=== PATIENT | female | born 1955 | race Caucasian/White ===

== ENCOUNTER → 2020-01-07 | Outpatient (CLI) | payer OTHER ==
--- NOTE | 2020-01-07 10:46 | Diagnostic Imaging Report ---
PROCEDURE: US carotid duplex, bilateral. TECHNIQUE: Multiple real-time grayscale images were obtained over the carotid arteries in various projections, bilaterally. Additional spectral analysis and color Doppler duplex images were also obtained. INDICATION: Occlusion stenosis of carotid arteries. FINDINGS: The previous carotid Doppler exam of 03/21/2019 noted a chronic occlusion of the left internal carotid artery. There is no sign of hemodynamically significant stenosis of the right carotid system, however. On this exam, our sonologist suggested that there may be minimal blood flow within the internal carotid artery. However, I am not convinced that there is in fact any blood flow within the internal carotid artery. Furthermore, the CTA head and neck exam performed on 12/09/2017 indicated that the internal carotid artery was completely occluded. There is still no evidence for hemodynamically significant stenosis of the right carotid system. Both vertebral arteries were identified and there was antegrade flow bilaterally. IMPRESSION: 1. There is no clear evidence for any blood flow within the occluded internal carotid artery on the left. If further study is desired, then repeat CTA head and neck exam will be recommended. 2. There is still no evidence for hemodynamically significant stenosis of the right carotid system. Parameters based on the consensus panel Stacy-Scale and Doppler ultrasound criteria published June 2003, Radiology, Volume 229. DOPPLER (peak systolic velocity M/S Right Left CCA 1.17 .75 ICA Proximal 0.88 0.26 ICA Mid 1.03 .14 ICA Distal 1.01 .14 RATIO 0.88 0.34 ECA 1.18 3.06 VERT .52 .54 Dictated by: Dictated on workstation # [id number]
== END ==
LOC: RAD 08:25
DX: I65.23 Occlusion and stenosis of bilateral carotid arteries (principal)
CPT/HCPCS: 93880

== ENCOUNTER → 2020-06-02 | Outpatient (CLI) | payer OTHER ==
--- NOTE | 2020-06-03 10:06 | Diagnostic Imaging Report ---
INDICATION: Routine screening. Comparison is made with prior mammogram 05/29/2019 and 05/08/2018. 2-D and 3-D bilateral screening mammography was performed with CAD. Both breasts are heterogeneously dense, limiting the sensitivity of mammography. There are benign calcifications in both breasts. No mass or malignant appearing microcalcifications are seen. Axillae are unremarkable. IMPRESSION: BI-RADS Category 2 No mammographic features suspicious for malignancy are identified. ACR BI-RADS Category 2: Benign findings. Result letter will be mailed to the patient. Note: At least 10% of breast cancer is not imaged by mammography. Dictated by: Dictated on workstation # [id number]
== END ==
LOC: RAD 08:05
PROVIDERS: ATTEND Internal Medicine
DX: Z12.31 Encounter for screening mammogram for malignant neoplasm of breast (principal)
CPT/HCPCS: 77063; 77067

== ENCOUNTER → 2020-08-18 | Outpatient (CLI) | payer OTHER | LOC: LABNPT 07:13 | PROVIDERS: ATTEND Orthopaedic Surgery | DX: Z01.812 Encounter for preprocedural laboratory examination (principal); Z20.822 Contact with and (suspected) exposure to COVID-19 | CPT/HCPCS: 87635 ==

== ENCOUNTER → 2021-06-03 | Outpatient (CLI) | payer OTHER ==
--- NOTE | 2021-06-04 10:30 | Diagnostic Imaging Report ---
EXAMINATION: Digital mammogram bilateral screening with CAD. INDICATION: Screening. COMPARISON: This study was compared to the prior exams of 06/02/2020, 05/29/2019, and 05/08/2018. At this time, there are no current complaints. FINDINGS: The fibroglandular tissue in both breasts is heterogeneously dense. This does limit the sensitivity of this exam. Overall, there does not appear to have been any significant change when compared to the prior study. No primary or secondary sign of malignancy is noted. IMPRESSION: There is no radiographic evidence for malignancy. ACR BI-RADS Category 1: Negative. Result letter will be mailed to the patient. Note: At least 10% of breast cancer is not imaged by mammography. Dictated by: Dictated on workstation # [id number]
== END ==
LOC: RAD 08:00
PROVIDERS: ATTEND Internal Medicine
DX: Z12.31 Encounter for screening mammogram for malignant neoplasm of breast (principal)
CPT/HCPCS: 77063; 77067

== ENCOUNTER → 2022-06-04 | Outpatient (CLI) | payer MEDICARE ==
--- NOTE | 2022-06-04 11:29 | Diagnostic Imaging Report ---
INDICATION: Routine screening. Comparison is made with prior mammogram from 06/03/2021 and 06/02/2020. 2-D and 3-D bilateral screening mammography was performed with CAD. CAD is utilized. The current study was also evaluated with a Computer Aided Detection (CAD) system. Both breasts are heterogeneously dense, limiting the sensitivity of mammography. There are benign calcifications bilaterally. No mass or malignant-appearing microcalcifications are seen. Axillae are unremarkable. IMPRESSION: BI-RADS Category 2 No mammographic features suspicious for malignancy are identified. ACR BI-RADS Category 2: Benign findings. Result letter will be mailed to the patient. Note: At least 10% of breast cancer is not imaged by mammography. Dictated by: Dictated on workstation # [id number]
== END ==
LOC: RAD 07:45
PROVIDERS: ATTEND Internal Medicine
DX: Z12.31 Encounter for screening mammogram for malignant neoplasm of breast (principal)
CPT/HCPCS: 77063; 77067

== ENCOUNTER → 2022-07-06 | Outpatient (CLI) | payer MEDICARE ==
--- NOTE | 2022-07-06 12:47 | Diagnostic Imaging Report ---
INDICATION: Postmenopausal state. COMPARISON: None available. FINDINGS: AP Spine L1-L4: [BMD (g/cm2): 1.072] [T-Score: -1.1] [Z-Score: 0.9] [BMD Previous: NA] [BMD % Change: NA] LT Hip Neck: [BMD (g/cm2): NA] [T-Score: NA] [Z-Score: NA] LT Hip Total: [BMD (g/cm2):NA] [T-Score:NA] [Z-Score: NA] [BMD Previous: NA] [BMD % Change: NA] RT Hip Neck: [BMD (g/cm2):NA] [T-Score:NA] [Z-Score:NA] RT Hip Total: [BMD (g/cm2):NA] [T-score:NA] [Z-Score:NA] [BMD Previous:NA] [BMD % Change:NA] Left forearm: Radius 33%: T-score: -2.8, Z-score: -1.4, bone mineral density: 0.640 *Indicates significant change from prior examination based on 95% confidence level. World Health Organization criteria for BMD interpretation classify patients as Normal (T-score at or above -1.0), Osteopenic (T-score between -1.0 and -2.5) or Osteoporotic (T-score at or below -2.5). LIMITATIONS AND MODIFICATION: The bilateral hips were not evaluated secondary to postsurgical changes. IMPRESSION: 1. Osteoporosis. 2. Baseline examination. 3. See below National Osteoporosis Foundation guidelines on when to potentially initiate pharmacologic therapy. Based on the National Osteoporosis Foundation Guidelines, pharmacologic treatment should be initiated in any of the following, unless clinical conditions suggest otherwise: * Any patient with prior fragility fracture of the hip or vertebrae. A spine fracture indicates 5X risk for subsequent spine fracture and 2X risk for subsequent hip fracture. * Osteoporosis (T-score <-2.5). * Postmenopausal women and men age 50 and older with low bone mass/osteopenia (T-score between -1.0 and -2.5) by DXA and 10-year major osteoporotic fracture greater than 20% or a 10-year probability of hip fracture greater than 3%. These fracture risks are supplied above in the FRAX score, if applicable. * Clinician judgement and/or patient preferences may indicate treatment for people with 10-year fracture probabilities above or below these levels. Dictated by: Dictated on workstation # [id number]
== END ==
LOC: RAD 07:59
PROVIDERS: ATTEND Nurse Practitioner Family
DX: Z13.820 Encounter for screening for osteoporosis (principal); M81.0 Age-related osteoporosis without current pathological fracture; Z78.0 Asymptomatic menopausal state
CPT/HCPCS: 77080

== ENCOUNTER → 2022-09-15 | Outpatient (CLI) | payer MEDICARE ==
[~2022-09-15] MED LIST: DENOSUMAB 60 MG/1 ML (PROLIA) SQ SCH
[2022-09-15 10:09] VITALS: BP 142/57
== END ==
LOC: SDC 09:44
PROVIDERS: ATTEND Nurse Practitioner Family
DX: M81.0 Age-related osteoporosis without current pathological fracture (principal)
CPT/HCPCS: 96372

== ENCOUNTER → 2023-03-23 | Outpatient (CLI) | payer MEDICARE ==
[2023-03-23 10:10] VITALS: BP 113/45
== END ==
LOC: SDC 09:51
PROVIDERS: ATTEND Nurse Practitioner Family
DX: M81.0 Age-related osteoporosis without current pathological fracture (principal)
CPT/HCPCS: 96372

== ENCOUNTER → 2023-06-06 | Outpatient (CLI) | payer MEDICARE ==
--- NOTE | 2023-06-06 08:54 | Diagnostic Imaging Report ---
INDICATION: Routine screening. COMPARISON: 06/04/2022 and 06/03/2021. TECHNIQUE: 2D and 3D bilateral screening mammography was performed with CAD. FINDINGS: Both breasts are heterogeneously dense, limiting the sensitivity of mammography. The parenchymal pattern is stable. No mass or malignant-appearing microcalcifications are seen. There are benign calcifications in the left breast. The axillae are unremarkable. IMPRESSION: No mammographic features suspicious for malignancy are identified. ACR BI-RADS Category 2: Benign findings. Result letter will be mailed to the patient. Note: At least 10% of breast cancer is not imaged by mammography. Dictated by: Dictated on workstation # [id number]
== END ==
LOC: RAD 07:30
PROVIDERS: ATTEND Internal Medicine
DX: Z12.31 Encounter for screening mammogram for malignant neoplasm of breast (principal)
CPT/HCPCS: 77063; 77067